=== PATIENT | male | born 1940 | race African-American/Black ===

== ENCOUNTER 2022-07-11 18:14 | Emergency (ER) | payer MEDICARE ==
[~2022-07-11] VITALS: Ht 185.4 cm; Wt 99.8 kg
[2022-07-11 18:18] VITALS: BP_SYST 110
--- NOTE | 2022-07-11 18:20 | NUR ---
Placed in room 7 . Placed on rn cardiac, blood pressure machine and pulse oximeter. To gown for exam. Side rails up. Report given to MICHAEL VALADEZ.
[2022-07-11 19:12] LABS: BASOPHILS % (AUTO) 0.3 % (0.0-2.0); EOSINOPHILS % (AUTO) 0.4 % (0.0-4.0); HEMATOCRIT 38.3 % (36-54); HEMOGLOBIN 12.8 g/dL (14.0-18.0); LYMPHOCYTES # (AUTO) 0.7 K/uL (1.0-5.5); LYMPHOCYTES % (AUTO) 10.4 % (20.5-51.5); MEAN CORPUSCULAR HEMOGLOBIN 28 pg (27-31); MEAN CORPUSCULAR HGB CONC 33 % (32-36); MEAN CORPUSCULAR VOLUME 82 fL (79.0-98.0); MONOCYTES # (AUTO) 0.8 K/uL (0.0-1.0); MONOCYTES % (AUTO) 11.9 % (1.7-9.3); NEUTROPHILS # (AUTO) 4.9 K/uL (1.8-7.7); PLATELET COUNT (AUTO) 159 K/uL (130-430); RED BLOOD CELL COUNT(AUTO) 4.66 MIL/uL (4.2-6.2); RED CELL DISTRIBUTION WIDTH 15.6 % (9.0-15.0); WHITE BLOOD COUNT (AUTO) 6.4 K/uL (4.8-10.8)
[2022-07-11 19:17] LABS: ANION GAP 7 (5-15); CALCIUM 8.3 mg/dL (8.4-11.0); CHLORIDE 104 mmol/L (98-107); CREATININE 1.61 mg/dL (0.55-1.30); GLUCOSE 137 mg/dL (70-99); POTASSIUM 3.5 mmol/L (3.5-5.1); SODIUM SERUM 141 mmol/L (136-145); UREA NITROGEN, BLOOD 23 mg/dL (8-21)
[2022-07-11 19:21] LABS: INR 1.1 (0.80-1.20)
[2022-07-11 19:31] LABS: ALANINE AMINOTRANSFERASE 45 U/L (12-78); ALBUMIN 3.2 g/dL (3.4-4.8); ASPARTATE AMINOTRANSFERASE 52 U/L (10-37); C-REACTIVE PROTEIN QUANT 4.5 mg/dL (0-0.5); TOTAL BILIRUBIN 0.4 mg/dL (0.0-1.0)
--- NOTE | 2022-07-11 19:37 | NUR ---
Pt received up in bed in NAD. Breathing adequately on RA. VSS. Covid COREY swab collected and sent to lab.
[2022-07-11 19:57] LABS: CKMB RELATIVE INDEX 0.3 (0.0-2.9); CREATINE KINASE MB 2.1 ng/mL (0-3.6)
--- NOTE | 2022-07-11 20:15 | NUR ---
# 20 gauge angiocath placed to L AC. Use of asceptic technique. Opsite placed over site. Blood return noted. Flushed with 10 cc of normal saline. No evidence of infiltration noted. Patient tolerated well.
[2022-07-11] MEDS ORDERED: PHEDM120 PO (20:16)
--- NOTE | 2022-07-11 20:20 | NUR ---
Medication administered as per MD Cordoba orders. Monitoring for any A/E.
[2022-07-11] MEDS: BEBTELOVIMAB (EUA) 175 MG/2 ML VIAL IV ONE (20:21)
--- NOTE | 2022-07-11 20:22 | NUR ---
[place] [facility] [place] + and being discharge.
--- NOTE | 2022-07-11 21:59 | NUR ---
Pt noted with IV pulled out and bleeding from site. Pressure applied and bandaged. No active bleeding noted at this time. NAD. Resting comfortably in bed.
--- NOTE | 2022-07-12 00:06 | NUR ---
Patient/facility staff (Alena) given written and verbal discharge instructions and verbalizes understanding. ER MD Rodríguez discussed with patient the results and treatment provided. Patient in stable condition. ID arm band removed. IV catheter removed intact and dressing applied, no active bleeding. Rx of Phenergan DM sent with pt. Patient educated on pain management and to follow up with PMD. [facility] arrived for transportation back to facility. Left ED in stable condition via gurney.
[2022-07-12 00:09] VITALS: BP_SYST 134
== END 2022-07-12 00:09 | disposition home or self-care (01) ==
LOC: SED 18:14
DX: U07.1 COVID-19 (principal); R53.1 Weakness; J02.9 Acute pharyngitis, unspecified; R05.9 Cough, unspecified; Z79.899 Other long term (current) drug therapy
CPT/HCPCS: 36415; 71045; 80053; 82550; 82553; 83605; 83880; 84484; 85025; 85379; 85610-TC; 85730-TC; 86140; 87040; 93005; 99285